=== PATIENT | female | born 1980 | race Caucasian/White ===

== ENCOUNTER 2020-10-02 18:21 | Inpatient (IN) | payer OTHER, MEDICARE ==
[~2020-10-02] VITALS: Ht 162.6 cm; Wt 98.5 kg
[2020-10-02] MEDS ORDERED: ONDANSETRON HCL 4 MG/2 ML VIAL IV ONE (22:00)
[2020-10-02] MEDS ORDERED: HYDROmorphone HCL 2 MG/ML VL IV ONE (22:00)
[2020-10-02] MEDS ORDERED: HYDROmorphone HCL 2 MG/ML VL IV PRN (22:15)
[2020-10-02] MEDS ORDERED: SODIUM CHLORIDE 0.9% 1,000 ML IV SCH (22:15)
[2020-10-02] MEDS ORDERED: SOD CHL 0.45% 1,000 ML IV SCH (22:45)
[2020-10-02 22:59] LABS: Basophils # (auto) 0.1 10 ^3/uL (0-0.2); Eosinophils # (auto) 0.1 10 ^3/uL (0-0.8); Monocytes # (auto) 0.6 10 ^3/uL (0-1.3); Nucleated Red Blood Cells % 0.1 %
[2020-10-02 23:03] LABS: Basophils % (auto) 0.6 % (0.0-2.0); Eosinophils % (auto) 1.1 % (0.0-7.0); Hemoglobin 11.9 g/dL (12.2-16.2); Lymphocytes % (auto) 35.4 % (10.0-50.0); Mean Corpuscular Hemoglobin 25.9 pg (28.0-32.0); Mean Corpuscular Volume 80.8 fL (80.0-100.0); Monocytes % (auto) 6.8 % (0.0-12.0); Neutrophils # (auto) 4.7 10 ^3/uL (1.6-8.6); Neutrophils % (auto) 56.1 % (37.0-80.0); Platelet Count (auto) 383 10^3/uL (140-450); Red Blood Cells 4.59 10^6/uL (4.0-5.20); Red Cell Distribution Width 15.6 % (11.8-14.3); White Blood Cell 8.5 10^3/uL (4.4-10.8)
[2020-10-02 23:21] LABS: Chloride 109 mmol/L (98-107); Potassium 3.8 mmol/L (3.5-5.1); Sodium 138 mmol/L (136-145)
[2020-10-02 23:28] LABS: Partial Thromboplastin Time 27.5 sec (23.0-31.2)
[2020-10-02 23:29] LABS: Alanine Aminotransferase 22 U/L (13-56); Albumin 3.5 g/dL (3.4-5.0); Alkaline Phosphatase 125 U/L (45-117); Anion Gap 9 (5-15); Aspartate Aminotransferase 21 U/L (15-37); BUN/Creatinine Ratio 17.1; Bilirubin, Total 0.2 mg/dL (0.2-1.0); Blood Urea Nitrogen 14 mg/dL (7-18); Calcium 8.6 mg/dL (8.5-10.1); Carbon Dioxide 20 mmol/L (21-32); GFR African American 98 mL/min; GFR Non-African American 81 mL/min; Glucose 82 mg/dL (74-106); Total Protein 7.3 g/dL (6.4-8.2)
[2020-10-02 23:30] LABS: INR 1.75 (0.9-1.15)
[2020-10-03] VITALS (7 sets, daily range): BP systolic 134–154; BP diastolic 84–99
--- NOTE | 2020-10-03 | NUR ---
MS admit from ER [facility],JANIE admitted to MS after no SBAR received. Patient oriented to CHRISTY BAZAN RN, room 212, bed B. Patient weighed by bedscale and encouraged to call if they need something. All questions and concerns addressed, patient verbalized understanding. Bed locked, in lowest position, call light within reach, side rails up x2. Will continue to monitor Q1hr and PRN.
--- NOTE | 2020-10-03 00:21 | NUR ---
MD Garzon notified Pt reporting pain. New orders received for Dilaudid 1mg Q4 IV PRN for severe pain. Read back and verified
[2020-10-03] MEDS ORDERED: HYDROmorphone HCL 2 MG/ML VL IV PRN (00:30)
[2020-10-03] MEDS ORDERED: SIMV-8 PO (00:41)
[2020-10-03] MEDS ORDERED: RISP0.5T12 PO (00:41)
[2020-10-03] MEDS ORDERED: SERT25TA84 PO (00:41)
[2020-10-03] MEDS ORDERED: DEXL60CA4 PO (00:41)
[2020-10-03] MEDS ORDERED: CARB400T PO (00:41)
[2020-10-03] MEDS ORDERED: LISI-648 PO (00:41)
[2020-10-03] MEDS ORDERED: ALPR1TAB2 PO (00:41)
[2020-10-03] MEDS: SOD CHL 0.45% 1,000 ML IV SCH ×2 (01:35→15:27)
[2020-10-03] MEDS: KETOROLAC TROMETH 30 MG/ML 1ML VIAL IV PRN (04:55)
[2020-10-03] MEDS: ALPRAZolam 0.25 MG TAB PO SCH ×3 (06:21→20:20)
[2020-10-03] MEDS: HYDROmorphone HCL 2 MG/ML VL IV PRN ×5 (06:49→21:54)
--- NOTE | 2020-10-03 07:30 | NUR ---
Opening Shift Note Assumed care of patient, awake and alert. No S/S of distress but c/o constant left side face pain. Instructed on POC and to call for assist PRN, will continue to monitor for changes Q1hr and PRN.
--- NOTE | 2020-10-03 08:30 | NUR ---
PATIENT CONSTANTLY C/O PAIN DESPITE PAIN MEDICATION BEING GIVEN,ALSO HAS BOUTS OF CRYING AND BEING RESTLESS
[2020-10-03] MEDS ORDERED: TOPIRAMATE 25 MG TAB PO SCH ×2 (09:30→10:00)
[2020-10-03] MEDS ORDERED: LORazepam 2MG/ML-1ML VIAL IV PRN (09:30)
[2020-10-03] MEDS: risperiDONE 1 MG TAB PO SCH ×2 (09:51→22:04)
[2020-10-03] MEDS: PANTOPRAZOLE 40 MG TAB PO SCH ×2 (09:52→22:05)
[2020-10-03] MEDS ORDERED: carBAMazepine 200 MG TAB PO SCH (10:00)
--- NOTE | 2020-10-03 12:15 | NUR ---
C/O NAUSEA,ALSO PATIENT IS WONDERING WHY NOT RECEIVING HER SIMVASTATIN AND LISINOPRIL LISTED IN HOME MEDICATION LIST,PAGED DR. JOHN,AWAITING FOR CALL BACK.
--- NOTE | 2020-10-03 13:00 | NUR ---
DR. JOHN HERE,INFORMED OF PATIENT C/O NAUSEA,ALSO PATIENT IS WONDERING WHY NOT RECEIVING HER SIMVASTATIN AND LISINOPRIL,STATED WILL REVIEW MEDS AND WILL WRITE ORDER.
[2020-10-03] MEDS: CARBAMAZEPINE ER 200 MG TAB PO SCH ×2 (13:04→21:59)
[2020-10-03] MEDS: DOCUSATE SOD 100 MG CAP PO SCH ×2 (14:22→22:04)
--- NOTE | 2020-10-03 16:30 | NUR ---
RE PAGED AND SPOKE TO DR. JOHN,INFORMED OF PATIENT C/O AND HOME MEDICATION NEEDED TO CONTINUED,RECEIVED AND SEE WRITTEN ORDERS.
--- NOTE | 2020-10-03 17:00 | NUR ---
C/O IV SITE PAIN,DISCONTINUED AND STARTED g#20 TO RIGHT FOREARM BY SUDARSHAN Rebollar RN
[2020-10-03] MEDS: ONDANSETRON HCL 4 MG/2 ML VIAL IV PRN (20:21)
[2020-10-03] MEDS: clonazePAM 0.5 MG TAB PO SCH (22:00)
[2020-10-03] MEDS ORDERED: CARBAMAZEPINE ER 200 MG TAB PO SCH (22:00)
[2020-10-03] MEDS: ATORVASTATIN 20 MG TAB PO SCH (22:09)
[2020-10-03] MEDS ORDERED: PHENobarbital 32.4 MG TAB PO ONE (22:45)
[2020-10-04] MEDS: clonazePAM 0.5 MG TAB PO SCH ×2 (00:04→22:35)
[2020-10-04] MEDS: KETOROLAC TROMETH 30 MG/ML 1ML VIAL IV PRN (00:47)
[2020-10-04] MEDS: HYDROmorphone HCL 2 MG/ML VL IV PRN ×6 (02:08→22:38)
[2020-10-04 05:00] VITALS: BP 141/83
[2020-10-04 08:00] VITALS: BP 143/86
[2020-10-04] MEDS: SOD CHL 0.45% 1,000 ML IV SCH (08:05)
--- NOTE | 2020-10-04 08:15 | NUR ---
Patient very anxious and had spent a lot of time reassuring her about her medications, iv site . Patient calling often wanting people to stay and talk to her. Will continue to monitor patient.
[2020-10-04] MEDS: ONDANSETRON HCL 4 MG/2 ML VIAL IV PRN (08:22)
[2020-10-04 09:00] VITALS: BP 123/76
[2020-10-04] MEDS: ALPRAZolam 0.25 MG TAB PO SCH ×2 (09:39→19:45)
[2020-10-04] MEDS: PANTOPRAZOLE 40 MG TAB PO SCH ×2 (09:40→22:35)
[2020-10-04] MEDS: DOCUSATE SOD 100 MG CAP PO SCH ×2 (09:40→22:34)
[2020-10-04] MEDS: risperiDONE 1 MG TAB PO SCH ×2 (09:40→22:35)
[2020-10-04] MEDS: CARBAMAZEPINE ER 200 MG TAB PO SCH ×2 (09:41→22:34)
[2020-10-04] MEDS ORDERED: SOD CHL 0.45% 1,000 ML IV SCH (12:45)
[2020-10-04] MEDS ORDERED: HYDROmorphone HCL 2 MG/ML VL IV PRN (12:45)
--- NOTE | 2020-10-04 12:47 | NUR ---
Dr. Garzon was in and notified MD about patient's concern about her medications. Patient wanted change in her prn pain medications. MD left new orders.
[2020-10-04 13:00] VITALS: BP 136/89
--- NOTE | 2020-10-04 13:58 | NUR ---
IV insertion IV access obtained, via clean sterile technique by inserting 22 gauge catheter to the right upper arm. IV secured properly. No trauma to site. Patient tolerated procedure well.
[2020-10-04] MEDS ORDERED: SERTRALINE HCL 50 MG TAB PO ONE (16:15)
--- NOTE | 2020-10-04 16:15 | NUR ---
Phoned Dr. Garzon as patient's IV is out and that patient needed a midline and that patient wanted her pain medication change again. MD left new orders.
--- NOTE | 2020-10-04 16:46 | NUR ---
Midline Placement: Patient educated on need for midline placement. All risks and benefits explained and all questions and concerns addresses prior to procedure. 18g/10 cm midline inserted via LEFT CEPHALIC vein using Ultrasound. Sterile technique utilized. Blood return obtained from THE SINGLE lumen and flushed easily with NS using proper technique. Midline secured with saline lock; biodisc and occlusive dressing applied. Primary RN PHUONG notified. Midline lot # [id number]
[2020-10-04 17:00] VITALS: BP 144/93
--- NOTE | 2020-10-04 17:30 | NUR ---
Patient c/o having sever panic attack and was kneeling on the floor. Spent time talking to patient before she finally went back to bed. Was noted to be walking in the hallway after. Will continue to monitor patient.
[2020-10-04 22:00] VITALS: BP 152/87
--- NOTE | 2020-10-04 22:30 | NUR ---
SET UP TELEMED COMPUTER FOR TELE PSYCH CONSULT AT BEDSIDE.
[2020-10-04] MEDS: ATORVASTATIN 20 MG TAB PO SCH (22:35)
[2020-10-04] MEDS: TOPIRAMATE 25 MG TAB PO SCH (22:36)
[2020-10-04] MEDS: LISINOPRIL 10 MG TAB PO SCH (22:37)
--- NOTE | 2020-10-05 02:30 | NUR ---
TELE PSYCH CONSULT REPORT PLACED IN THE MEDICAL CHART.
[2020-10-05 05:00] VITALS: BP 159/97
[2020-10-05] MEDS: HYDROmorphone HCL 2 MG/ML VL IV PRN ×6 (05:35→21:35)
[2020-10-05] MEDS: ONDANSETRON HCL 4 MG/2 ML VIAL IV PRN ×4 (05:38→21:35)
--- NOTE | 2020-10-05 08:00 | NUR ---
Opening Shift Note Assumed care of patient, awake and alert. No S/S of distress/SOB, 8/10 left facial pain. Instructed on POC and to call for assist PRN, will continue to monitor for changes Q1hr and PRN.
[2020-10-05 09:00] VITALS: BP 152/83
[2020-10-05] MEDS: SERTRALINE HCL 50 MG TAB PO SCH (09:11)
[2020-10-05] MEDS: DOCUSATE SOD 100 MG CAP PO SCH ×2 (09:11→21:33)
[2020-10-05] MEDS: ALPRAZolam 0.25 MG TAB PO SCH ×2 (09:12→20:08)
[2020-10-05] MEDS: risperiDONE 1 MG TAB PO SCH ×2 (09:12→21:34)
[2020-10-05] MEDS: PANTOPRAZOLE 40 MG TAB PO SCH ×2 (09:12→21:34)
[2020-10-05] MEDS: LISINOPRIL 10 MG TAB PO SCH (09:13)
[2020-10-05] MEDS: CARBAMAZEPINE ER 200 MG TAB PO SCH ×2 (09:13→21:33)
[2020-10-05 09:18] LABS: Basophils # (auto) 0 10 ^3/uL (0-0.2); Basophils % (auto) 0.7 % (0.0-2.0); Eosinophils # (auto) 0.1 10 ^3/uL (0-0.8); Eosinophils % (auto) 1.5 % (0.0-7.0); Hematocrit 36.1 % (36.0-46.0); Hemoglobin 11.1 g/dL (12.2-16.2); Lymphocytes # (auto) 1.7 10 ^3/uL (0.4-5.4); Lymphocytes % (auto) 34.7 % (10.0-50.0); Mean Corpuscular Hemoglobin 25.3 pg (28.0-32.0); Mean Corpuscular Hgb Conc. 30.7 g/dL (32.0-36.0); Mean Corpuscular Volume 82.3 fL (80.0-100.0); Monocytes # (auto) 0.3 10 ^3/uL (0-1.3); Monocytes % (auto) 5.9 % (0.0-12.0); Neutrophils # (auto) 2.8 10 ^3/uL (1.6-8.6); Neutrophils % (auto) 57.2 % (37.0-80.0); Nucleated Red Blood Cells % 0.1 %; Platelet Count (auto) 325 10^3/uL (140-450); Red Blood Cells 4.39 10^6/uL (4.0-5.20); Red Cell Distribution Width 15.4 % (11.8-14.3); White Blood Cell 4.9 10^3/uL (4.4-10.8)
[2020-10-05 09:32] LABS: Albumin 3.3 g/dL (3.4-5.0); Calcium 8.4 mg/dL (8.5-10.1); Potassium 3.7 mmol/L (3.5-5.1)
[2020-10-05 09:35] LABS: BUN/Creatinine Ratio 13.9; Bilirubin, Total 0.1 mg/dL (0.2-1.0); Total Protein 7.1 g/dL (6.4-8.2)
[2020-10-05] MEDS: SOD CHL 0.45% 1,000 ML IV SCH (12:25)
[2020-10-05 13:00] VITALS: BP 129/77
[2020-10-05] MEDS: KETOROLAC TROMETH 30 MG/ML 1ML VIAL IV PRN (16:14)
[2020-10-05 16:51] VITALS: BP 128/68
--- NOTE | 2020-10-05 19:30 | NUR ---
OPENING SHIFT NOTE PT IS RESTING IN BED WITH EYES OPEN AND AWAKE AND ALERT X4. NO S/S OF ANY DISTRESS NOTED AT THIS TIME. POC DISCUSSED WITH PT AND PT VERBALIZES UNDERSTANDING. BED IS LOW, WHEELS ARE LOCKED, AND CALL LIGHT IS WITH IN REACH.
[2020-10-05] MEDS: clonazePAM 0.5 MG TAB PO SCH (21:33)
[2020-10-05] MEDS: TOPIRAMATE 25 MG TAB PO SCH (21:34)
[2020-10-05] MEDS: ATORVASTATIN 20 MG TAB PO SCH (21:34)
[2020-10-05 23:10] VITALS: BP 129/75
[2020-10-06] MEDS: ONDANSETRON HCL 4 MG/2 ML VIAL IV PRN (04:41)
[2020-10-06] MEDS: HYDROmorphone HCL 2 MG/ML VL IV PRN ×5 (04:41→17:59)
[2020-10-06] MEDS: SOD CHL 0.45% 1,000 ML IV SCH ×2 (05:13→19:00)
[2020-10-06 05:14] VITALS: BP 129/75
[2020-10-06] MEDS: KETOROLAC TROMETH 30 MG/ML 1ML VIAL IV PRN ×2 (05:44→22:24)
[2020-10-06 09:03] VITALS: BP 115/76
[2020-10-06] MEDS: SERTRALINE HCL 50 MG TAB PO SCH (09:56)
[2020-10-06] MEDS: PANTOPRAZOLE 40 MG TAB PO SCH ×2 (09:56→22:48)
[2020-10-06] MEDS: DOCUSATE SOD 100 MG CAP PO SCH ×2 (09:56→22:47)
[2020-10-06] MEDS: risperiDONE 1 MG TAB PO SCH ×2 (09:56→22:48)
[2020-10-06] MEDS: CARBAMAZEPINE ER 200 MG TAB PO SCH ×2 (09:57→22:47)
[2020-10-06] MEDS: ALPRAZolam 0.25 MG TAB PO SCH ×2 (09:57→21:00)
[2020-10-06] MEDS: LISINOPRIL 10 MG TAB PO SCH (09:57)
[2020-10-06 11:55] VITALS: BP 131/81
--- NOTE | 2020-10-06 14:24 | NUR ---
Nutrition Assessment Est energy needs [id number] kcal (18-20 kcal/kg BW 98.1kg) Est protein needs 55-71g (1-1.3g/kg IBW 55kg) Will monitor and reassess prn. Addendum: 10/06/20 at [address] Amended: Links added.
[2020-10-06 16:54] VITALS: BP 118/64
--- NOTE | 2020-10-06 18:49 | NUR ---
Dr. Garzon at bedside.
[2020-10-06] MEDS ORDERED: cefTRIAXone 1GM/50ML D5W 50 ML IV ONE (19:00)
[2020-10-06] MEDS ORDERED: THROAT LOZENGES(CEPASTAT) MT PRN (19:00)
[2020-10-06 22:00] VITALS: BP 138/73
[2020-10-06] MEDS: ATORVASTATIN 20 MG TAB PO SCH (22:48)
[2020-10-06] MEDS: clonazePAM 0.5 MG TAB PO SCH (22:48)
[2020-10-06] MEDS: TOPIRAMATE 25 MG TAB PO SCH (22:49)
[2020-10-07] MEDS: HYDROmorphone HCL 2 MG/ML VL IV PRN ×4 (00:01→18:09)
[2020-10-07] MEDS: ONDANSETRON HCL 4 MG/2 ML VIAL IV PRN ×4 (00:01→18:13)
[2020-10-07 05:00] VITALS: BP 119/75
[2020-10-07 08:30] VITALS: BP 116/63
[2020-10-07] MEDS ORDERED: cefTRIAXone 1GM/50ML D5W 50 ML IV SCH (09:00)
[2020-10-07] MEDS: DOCUSATE SOD 100 MG CAP PO SCH (09:29)
[2020-10-07] MEDS: SOD CHL 0.45% 1,000 ML IV SCH (09:29)
[2020-10-07] MEDS: risperiDONE 1 MG TAB PO SCH (09:31)
[2020-10-07] MEDS: PANTOPRAZOLE 40 MG TAB PO SCH (09:31)
[2020-10-07] MEDS: LISINOPRIL 10 MG TAB PO SCH (09:31)
[2020-10-07] MEDS: SERTRALINE HCL 50 MG TAB PO SCH (09:32)
[2020-10-07] MEDS: TOPIRAMATE 25 MG TAB PO SCH ×2 (09:32→09:34)
[2020-10-07] MEDS: CARBAMAZEPINE ER 200 MG TAB PO SCH (09:32)
[2020-10-07] MEDS: ALPRAZolam 0.25 MG TAB PO SCH (09:32)
[2020-10-07] MEDS: KETOROLAC TROMETH 30 MG/ML 1ML VIAL IV PRN (09:32)
[2020-10-07] MEDS ORDERED: TOPI25TA84 PO (09:50)
[2020-10-07] MEDS ORDERED: ALPR1TAB2 PO (09:50)
[2020-10-07 13:24] VITALS: BP 122/76
[2020-10-07 13:38] VITALS: BP 116/63
[2020-10-07 16:50] VITALS: BP 127/73
--- NOTE | 2020-10-07 18:57 | NUR ---
Discharge instructions given as ordered. Encourage to follow up with PMD (Follow up with at [facility]. Follow up with Dr. Garzon #[phone] Address :[address], [place], [address]) as instructed. All questions and concerns addressed. Patient verbalized understanding. Medication reconciliation form completed and copy given to patient. Home medications held in Pharmacy returned to patient. IV removed with catheter intact, pressure dressing applied. Patient taken to vehicle via wheelchair with all personal belongings, accompanied by staff and family member. No distress noted at time of departure.
== END 2020-10-07 18:57 | disposition home or self-care (01) | DRG 74 ==
LOC: ER 18:21 → OVERFLOW 18:22 → CENTRAL 23:40
PROVIDERS: ADMIT Specialist; ATTEND Specialist
DX: G50.0 Trigeminal neuralgia (principal); F11.20 Opioid dependence, uncomplicated; I10 Essential (primary) hypertension; G89.4 Chronic pain syndrome; G43.409 Hemiplegic migraine, not intractable, without status migrainosus; F41.0 Panic disorder [episodic paroxysmal anxiety]; F41.9 Anxiety disorder, unspecified; E03.9 Hypothyroidism, unspecified; E66.09 Other obesity due to excess calories; E11.9 Type 2 diabetes mellitus without complications; F32.9 Major depressive disorder, single episode, unspecified; J06.9 Acute upper respiratory infection, unspecified; Z79.899 Other long term (current) drug therapy; Z82.0 Family history of epilepsy and other diseases of the nervous system; Z90.49 Acquired absence of other specified parts of digestive tract; Z88.8 Allergy status to other drugs, medicaments and biological substances; Z68.37 Body mass index [BMI] 37.0-37.9, adult
CPT/HCPCS: 36415; 70545; 70551; 71045; 80053; 85025; 85610; 85652; 85730; 96361; 96374; 96375; 96376; G0378; J0696; J1885; J2405

== ENCOUNTER 2021-06-18 17:16 | Emergency (ER) | payer OTHER, MEDICARE ==
[~2021-06-18] VITALS: Ht 157.5 cm; Wt 63.5 kg
[~2021-06-18 17:16] MED LIST: ALPR1TAB2 PO; CARB400T PO; DEXL60CA4 PO; LISI-716 PO; RISP0.5T17 PO; SERT25TA84 PO; SIMV-8 PO; TOPI25TA84 PO
[2021-06-18 18:03] VITALS: BP 192/119
== END 2021-06-18 22:35 | disposition left against medical advice (07) ==
LOC: EDBD 17:16 → ER 17:16
DX: R51.9 Headache, unspecified (principal); Z53.21 Procedure and treatment not carried out due to patient leaving prior to being seen by health care provider